=== PATIENT | female | born 1975 | race Caucasian/White ===

== ENCOUNTER 2024-10-26 16:11 | Outpatient (AMB) | payer OTHER, SELFPAY ==
--- OUTSIDE RECORDS SUMMARY | 2024-10-26 18:02 | XMS_ITS | Encounter Summary ---
Author Organization [facility] [place] [address] Care Team Providers Care Petroleum Sampler Name Role Phone Connie Coley Primary Care Provider [phone] Encounter Details Date Type Department Care Team (Latest Contact Info) Description 09/01/2024 Lab Requisition [facility] - Main Lab [address] [place] [address] Soni Glass MD [address] [address] Encounter for gynecological examination (general) (routine) without abnormal findings Social History Tobacco Use Types Packs/Day Years Used Date Smoking Tobacco: Never Smokeless Tobacco: Never Alcohol Use Standard Drinks/Week Comments Yes 0 (1 standard drink = 0.6 oz pur e alcohol) social Interpersonal Safety Answer Date Record ed Physical Abuse 06/19/2024 Verbal Abuse 06/19/2024 Comments No Sex and Gender Information Value Date Recorded Sex Assigned at Female 04/10/2024 12:50 PM EST Legal Sex Female 6:27 PM EST Gender Identity Female 04/10/2024 12:50 PM EST Sexual Orientation Not on file documented as of this encounter Plan of Treatment Not on file documented as of this encounter Procedures Procedure Name Priority Date/Time Associated Diagnosis Comments PAP SMEAR Routine 08/31/2024 12:00 PM EDT Encounter for gynecological examination (general) (routine) without abnormal findings documented in this encounter Results * Pap smear (08/31/2024 12:00 PM EDT) Interpretation Negative for intraepithelial lesion or malignancy 09/09/2024 1:48 PM EDT [facility] General Categorization Negative 09/09/2024 1:48 PM EDT [facility] Specimen Adequacy Satisfactory for evaluation, endocervical/manrique sformation zone component absent 09/09/2024 1:48 PM EDT [facility] Pap Methodology Liquid Based Pap Test 09/09/2024 1:48 PM EDT [facility] Disclaimer The Pap test is a screening test which carries an inherent false negative rate. These test results should be correlated with the patient's clinical findings and history. This Pap test was processed using an automated screening system. Technical cytopathology services provided by [facility], at [address] [place] [address] (CLIA # [id number]/Doug Antonio MD, Breeder Hen Service Technician.) 09/09/2024 1:48 PM EDT [facility] Console Pap Interpretation Reported 09/09/2024 1:48 PM EDT [facility] Brushing/Spatula Cervix uteri structure / Unknown 08/31/2024 12:00 PM EDT 09/01/2024 6:29 AM EDT us Soni Glass MD LAB CYTOLOGY ORDERABLES Final Result [facility] [address] [place] [address], [place] [phone] documented in this encounter Visit Diagnoses Diagnosis Encounter for gynecological examination (general) (routine) without abnormal findings documented in this encounter Care Teams Petroleum Sampler Relationship Specialty Start Date End Date Connie Coley [address] [place] [address] PCP - General Family Medicine 02/14/24 documented as of this encounter
--- OUTSIDE RECORDS SUMMARY | 2024-10-26 18:02 | XMS_ITS | Clinical Summary ---
Author Organization [address] [facility] Address [address] [place] [address] Phone Care Team Providers Care Genetic Counsellor Name Role Phone Connie Coley Primary Care Provider [phone] Allergies Active Allergy Reactions Criticality Noted Date Comments Naproxen 2015 Medications lisinopriL (PRINIVIL,ZESTR IL) 10 mg tablet Take 1 tablet (10 mg total) by mouth 1 (one) time each day. 4 Active amLODIPine (NORVASC) 5 mg tablet Take 1 tablet (5 mg total) by mouth at bedtime. 4 Active MULTIVITAMIN ORAL Take 1 tablet by mouth 1 (one) time each day. Active fexofenadine (GURU) 180 mg tablet Take 1 tablet (180 mg total) by mouth 1 (one) time each day. Active methocarbamoL (ROBAXIN) 500 mg tablet Take 1 tablet (500 mg total) by mouth 2 (two) times a day for 10 days. 20 tablet 5 Active polyethylene glycol (Golytely) 236-22.74-6.74 -5.86 gram solution Take 4L by mouth once for one dose. May substitue any PEG. Starting at 6PM the night before your procedure drink 1 8oz glasses at your own pace until you complete half of the gallon. Finish 2nd half of the gallon 5 hours before your procedure. 4000 mL 5 Active bisacodyL (DULCOLAX) 5 mg EC tablet Take 2 tablets by mouth right before beginning bowel prep. See instructions provided by the office 2 tablet 5 Active levonorgestreL (MIRENA) 21 mcg/24hr (up to 8 yrs) 52 mg IUD 1 Device (1 each total) by intrauterine route. 5 Active Active Problems Problem Noted Date Diagnosed Date HTN (hypertension) 06/19/2024 Encounters Date Type Department Care Team Description 09/01/2024 Lab Requisition [facility] - Main Lab [address] [facility] [place] [address] Soni Glass MD Encounter for gynecological examination (general) (routine) without abnormal findings from Last 3 Months Surgical History Surgery Date Site/Laterality Comments TYMPANOSTOMY TUBE PLACEMENT PROCEDURE: HISTORICAL PE TUBES SINUS SURGERY 07/2013 Dr Lewis PROCEDURE: MI UNLISTED PROCEDURE ACCESSORY SINUSES; COMMENT: deviated nasal septum; polyps COLONOSCOPY 03/09/2016 PROCEDURE: HISTORICAL COLONOSCOPY; COMMENT: Normal screening examination. OTHER SURGICAL HISTORY 04/19/16 both 2oclock Bilateral PROCEDURE: BREAST MASS CORE BIOPSY SPCMN PATHOLGY EXAM; COMMENT: benign, no cancer BREAST BIOPSY 04/19/2015 Bilateral benign Medical History Medical History Date Comments Historical Medical DX 10/21/2014 DX:NO ACTI VE MEDICAL PROBLEMS Multiple nasal polyps 11/12/2018 DX:Multipl e nasal polyps Essential hypertension 05/03/2021 DX:Essent ial hypertension Colon polyps 05/24/2021 DX:Colon polyps; COMMENT: Colonoscopy on May 18, 2021 showed 5 5 to 8 mm polyps in the ascending colon and one 5 mm polyp in the descending colon. Dr. Carreon recommends repeat colonoscopy in 3 years. Family History Medical History Relation Name Comments Hypertension Brother 1 No Known Problems Brother 2 No Known Problems Father never met biological father Heart attack Maternal Grandfather Other cancer Maternal Grandfather metasta sized; caught late, unknown primary Stroke Maternal Grandfather Breast cancer Maternal Grandmother m 40s a ge 82, date of onset unknown Colon cancer Mother No Known Problems Paternal Grandfather ne ninfa met No Known Problems Paternal Grandmother ne ninfa met Relation Name Status Comments Brother 1 Alive Brother 2 Alive Father Maternal Grandfather Maternal Grandmother m 40s Mother Alive Paternal Grandfather Paternal Grandmother Social History Tobacco Use Types Packs/Day Years [...] PM EST Sexual Orientation Not on file Obstetrics History Para Term AB IAB SAB Ectopic Multiple Livin g Live Births 1 03 04 1 Date Outcome GA Total Labor Labor/2nd/3rd Weight Sex Type Anes PTL Melissa A1 A5 Name Clin Term Last Filed Vital Signs Vital Sign Reading Time Taken Comments Blood Pressure 128/81 06/19/2024 9:33 AM EDT Pulse 69 06/19/2024 9:33 AM EDT Temperature 36.4 C (97.6 F) 06/19/2024 8:26 AM EDT Respiratory Rate 16 06/19/2024 9:33 AM EDT Oxygen Saturation 96% 06/19/2024 9:33 AM EDT Inhaled Oxygen Concentration - - Weight 95.3 kg (210 lb) 06/19/2024 8:26 AM EDT Height 170.2 cm (5' 7 ) 06/19/2024 8:26 AM EDT Body Mass Index 32.89 06/19/2024 8:26 AM EDT Plan of Treatment Health Maintenance Due Date Last Done Comments Hepatitis B Vaccines (1 of 3 - 19+ 3-dose series) 1995 Cholesterol Screening (Lipid Panel) 02/10/2022 HIV Screening 02/10/2022 Hepatitis C Screening 02/10/2022 Social Influencers of Health Screening 02/10/2022 Hypertension/CHF/CAD Annual BMP Blood Test 02/11/2022 COVID-19 Vaccine ( season) 2023 12/29/2020, 11/30/2020 Depression Screening 03/04/2024 Influenza Vaccine (#1) 2024 , 11/12/2018, 01/31/2017, Additional history exists Breast Cancer Screening 04/10/2026 04/10/19, 04/05/2023, 04/03/2022, Additional history exists DTaP,Tdap,and Td Vaccines (3 - Td or Tdap) 07/21/2026 07/21/2016, 10/21/2014 Colorectal Cancer Screening: Colonoscopy 06/20/2027 06/19/2024 Cervical Cancer Screening: Pap Smear 09/01/2027 08/31/2024 HIB Vaccines Aged Out No longer eligi ble based on patient's age to complete this topic HPV Vaccines Aged Out No longer eligi ble based on patient's age to complete this topic Hepatitis A Vaccines Aged Out No long er eligible based on patient's age to complete this topic IPV Vaccines Aged Out No longer eligi ble based on patient's age to complete this topic MMR Vaccines Aged Out No longer eligi ble based on patient's age to complete this topic Meningococcal ACWY Vaccine Aged Out N o longer eligible based on patient's age to complete this topic Meningococcal B Vaccine Aged Out No l onger eligible based on patient's age to complete this topic Pneumococcal Vaccine: Pediatrics (0 to 5 Years) and At-Risk Patients (6 to 49 Years) Aged Out No longer eligible based on patient's age to complete this topic RSV Immunization Patients Under 20 months Aged Out No longer eligible based on patient's age to complete this topic Varicella Vaccines Aged Out No longer eligible based on patient's age to complete this topic Procedures Procedure Name Priority Date/Time Associated Diagnosis Comments PAP SMEAR Routine 08/31/2024 12:00 PM EDT Encounter for gynecological examination (general) (routine) without abnormal findings COLONOSCOPY Routine 06/19/2024 9:11 AM EDT Hx of colonic polyps MG MAMMO DIGITAL SCREENING W MARTIN BILAT Routine 04/10/2024 1:04 PM EST Encounter for screening mammogram for breast cancer from Last 3 Months or Most Recently Relevant to Health Maintenance Results * Pap smear (08/31/2024 12:00 PM EDT) Interpretation Negative for intraepithelial lesion or malignancy 09/09/2024 1:48 PM EDT [facility] General Categorization Negative 09/09/2024 1:48 PM EDT [facility] Specimen Adequacy Satisfactory for evaluation, endocervical/manrique sformation zone component absent 09/09/2024 1:48 PM EDT [facility] Pap Methodology Liquid Based Pap Test 09/09/2024 1:48 PM EDT [facility] Disclaimer The Pap test is a screening test which carries an inherent false negative rate. These test results should be correlated with the patient's clinical findings and history. This Pap test was processed using an automated screening system. Technical cytopathology services provided by [facility], at [address] [place] [id number] (CLIA # [id number]/Doug Antonio MD, Bicycle Designer.) 09/09/2024 1:48 PM EDT [facility] Console Pap Interpretation Reported 09/09/2024 1:48 PM EDT [facility] Brushing/Spatula Cervix uteri structure / Unknown 08/31/2024 12:00 PM EDT 09/01/2024 6:29 AM EDT Soni Glass MD LAB CYTOLOGY ORDERABLES Final Result [facility] [address] [place] [address], * COLONOSCOPY Anesthesia - MAC; [facility] ENDOSCOPY (06/19/2024 9:11 AM EDT) Anatomical Region Laterality Modality Endoscopy 06/19/2024 8:55 AM EDT Impressions 06/19/2024 9:15 AM EDT - Internal hemorrhoids. - The examination was otherwise normal. - No specimens collected. Recommendation: - Discharge patient to home. - Repeat colonoscopy in 5 years for surveillance. Narrative 06/19/2024 9:15 AM EDT [facility] GI Patient Name: Martin Flanagan Procedure Date: 06/19/2024 8:55 AM Date of : 1975 Age: 49 Gender: Female Note Status: Finalized Attending MD: Denise Carreon MD, Procedure Date No Time: 06/19/2024 Procedure: Colonoscopy Indications: High risk colon cancer surveillance: Personal history of colonic polyps Providers: Denise Carreon MD Referring MD: Denise Carreon MD Medicines: Monitored Anesthesia Care Complications: No immediate complications. Estimated Blood Loss: Estimated blood loss: none. Procedure: Pre-Anesthesia Assessment: - Prior to the procedure, a History and Physical was performed, and patient medications and allergies were reviewed. The patient is competent. The risks and benefits of the procedure and the sedation options and risks were discussed with the patient. All questions were answered and informed consent was obtained. Patient identification and proposed procedure were verified by the physician, the nurse, the financial specialist and the correctional maintenance technician in the pre-procedure area in the endoscopy suite. Mental Status Examination: alert and oriented. Airway Examination: normal oropharyngeal airway and neck mobility. Respiratory Examination: clear to auscultation. CV Examination: normal. Prophylactic Antibiotics: The patient does not require prophylactic antibiotics. Prior Anticoagulants: The patient has taken no anticoagulant or antiplatelet agents. ASA Grade Assessment: II - A patient with mild systemic disease. After reviewing the risks and benefits, the patient was deemed in satisfactory condition to undergo the procedure. The anesthesia plan was to use monitored anesthesia care (MAC). Immediately prior to administration of medications, the patient was re-assessed for adequacy to receive sedatives. The heart rate, respiratory rate, oxygen saturations, blood pressure, adequacy of pulmonary ventilation, and response to care were monitored throughout the procedure. The physical status of the patient was re-assessed after the procedure. After I obtained informed consent, the scope was passed under direct vision. Throughout the procedure, the patient's blood pressure, pulse, and oxygen saturations were monitored continuously. The Olympus Colonoscope was introduced through the anus and advanced to the cecum, identified by appendiceal orifice and ileocecal valve. The colonoscopy was performed without difficulty. The patient tolerated the procedure well. The quality of the bowel preparation was good. Findings: The perianal and digital rectal examinations were normal. Internal hemorrhoids were found during retroflexion. The hemorrhoids were Grade I (internal hemorrhoids that do not prolapse). The exam was otherwise without abnormality. Procedure Code(s): --- Professional --- 09839, Colonoscopy, flexible; diagnostic, including collection of specimen(s) by brushing or washing, when performed (separate procedure) Diagnosis Code(s): --- Professional --- Z86.010, Personal history of colonic polyps CPT copyright 2020 [employer]. All rights reserved. The codes documented in this report are preliminary and upon mechanical fitter review may be revised to meet current compliance requirements. Denise Carreon MD 06/19/2024 9:15:35 AM This report has been signed electronically.Denise Carreon MD Number of Addenda: 0 Note Initiated On: 06/19/2024 8:55 AM Scope Withdrawal Time: 0 hours 6 minutes 40 seconds Scope In: 9:00:36 AM Scope Out: 9:09:33 AM Endoscopy Department at [facility] - [address] [place] [id number] Procedure Note Denise Carreon MD - 06/19/2024 [facility] GI Patient Name: Martin Flanagan Procedure Date: 06/19/2024 8:55 AM Date of : 1975 Age: 49 Gender: Female Note Status: Finalized Attending MD: Denise Carreon MD, Procedure Date No Time: 06/19/2024 Procedure: Colonoscopy Indications: High risk colon cancer surveillance: Personalhistory of colonic polyps Providers: Denise Carreon MD Referring MD: Denise Carreon MD Medicines: Monitored Anesthesia Care Complications: No immediate complications. Estimated Blood Loss: Estimated blood loss: none. Procedure: Pre-Anesthesia Assessment: - Prior to the procedure, a History and Physicalwas performed, and patient medications and allergieswere reviewed. The patient is competent. The risks and benefits of the procedure and the sedation optionsand risks were discussed with the patient. Allquestions were answered and informed consent was obtained. Patient identification and proposed procedure were verified by the physician, the nurse, theanesthetist and the correctional maintenance technician in the pre-procedure area in the endoscopy suite. Mental Status Examination: alertand oriented. Airway Examination: normal oropharyngeal airway and neck mobility. Respiratory Examination: clear to auscultation. CV Examination: normal. Prophylactic Antibiotics: The patient does notrequire prophylactic antibiotics. Prior Anticoagulants: The patient has taken no anticoagulant or antiplatelet agents. ASA Grade Assessment: II - A patient withmild systemic disease. After reviewing the risks and benefits, the patient was deemed in satisfactory condition to undergo the procedure. The anesthesia plan was to use monitored anesthesia care (MAC). Immediately prior to administration of medications, the patient was re-assessed for adequacy to receive sedatives. The heart rate, respiratory rate, oxygen saturations, blood pressure, adequacy of pulmonary ventilation, and response to care were monitored throughout the procedure. The physical status ofthe patient was re-assessed after the procedure. After I obtained informed consent, the scope was passed under direct vision. Throughout theprocedure, the patient's blood pressure, pulse, and oxygen saturations were monitored continuously. TheOlympus Colonoscope was introduced through the anus and advanced to the cecum, identified by appendiceal orifice and ileocecal valve. The colonoscopy was performed without difficulty. The patient tolerated the procedure well. The quality of the bowel preparation was good. Findings: The perianal and digital rectal examinations were normal. Internal hemorrhoids were found duringretroflexion. The hemorrhoids were Grade I (internal hemorrhoids that do not prolapse). The exam was otherwise without abnormality. Procedure Code(s): --- Professional --- 11276, Colonoscopy, flexible; diagnostic, including collection of specimen(s) by brushing or washing,when performed (separate procedure) Diagnosis Code(s): --- Professional --- Z86.010, Personal history of colonic polyps CPT copyright 2020 [employer]. All rights reserved. The codes documented in this report are preliminary and upon mechanical fitter reviewmay be revised to meet current compliance requirements. Denise Carreon MD 06/19/2024 9:15:35 AM This report has been signed electronically.Denise Carreon MD Number of Addenda: 0 Note Initiated On: 06/19/2024 8:55 AM Scope Withdrawal Time: 0 hours 6 minutes 40 seconds Scope In: 9:00:36 AM Scope Out: 9:09:33 AM Endoscopy Department at [facility] - [address] [place] [id number] IMPRESSION: - Internal hemorrhoids. - The examination was otherwise normal. - No specimens collected. Recommendation: - Discharge patient to home. - Repeat colonoscopy in 5 years for surveillance. Denise Carreon MD GI~PROCEDURE ORDERABLES Fin al Result * MG Mammo Digital Screening w Martin bilat (04/10/2024 1:04 PM EST) Anatomical Region Laterality Modality Breast Bilateral Mammography 04/13/2024 9:58 AM EST Impressions 04/13/2024 11:52 AM EST 1. No mammographic evidence of malignancy 2. Scattered fibroglandular tissue BI-RADS CATEGORY: 2 - BENIGN RECOMMENDATION: Screening bilateral mammogram is recommended in 1 year. Mammo Location: [facility], [address] [place] [address], [id number], . -------- FINAL REPORT -------- Dictated By: Dhruv Moreno Dictated Date: 04/13/2024 09:58 ET Assigned Physician: Dhruv Moreno Reviewed and Electronically Signed By: Dhruv Moreno Signed Date: 04/13/2024 11:52 ET Workstation ID: [id number] Transcribed By: Self Edit Transcribed Date: 04/13/2024 10:15 ET Narrative 04/13/2024 11:52 AM EST A BILATERAL DIGITAL 3D SCREENING MAMMOGRAPHY HISTORY: Routine screening. Family history of breast cancer in grandmother. COMPARISON: Multiple priors dating back to 03/29/2021 Technique: Bilateral full field digital mammography (3D) was performed using standard CC and MLO projections , left breast exaggerated CC CAD was used to evaluate this mammogram. FINDINGS: Right: No suspicious masses, groups of microcalcification or areas of architectural distortion identified. Stable typically benign parenchymal asymmetries. Upper outer biopsy marker at middle depth. Left: No suspicious masses, groups of microcalcification or areas of architectural distortion identified. Stable typically benign parenchymal asymmetries. Medial breast biopsy marker at posterior depth. BREAST DENSITY: B - There are scattered areas of fibroglandular density. Procedure Note Dhruv Moreno MD - 04/13/2024 A BILATERAL DIGITAL 3D SCREENING MAMMOGRAPHY HISTORY: Routine screening. Family history of breast cancer ingrandmother. COMPARISON: Multiple priors dating back to 03/29/2021 Technique: Bilateral full field digital mammography (3D) was performedusing standard CC and MLO projections , left breast exaggerated CC CAD was used to evaluate this mammogram. FINDINGS: Right: No suspicious masses, groups of microcalcification or areas ofarchitectural distortion identified. Stable typically benign parenchymalasymmetries. Upper outer biopsy marker at middle depth. Left: No suspicious masses, groups of microcalcification or areas ofarchitectural distortion identified. Stable typically benign parenchymalasymmetries. Medial breast biopsy marker at posterior depth. BREAST DENSITY: B - There are scattered areas of fibroglandular density. IMPRESSION: 1. No mammographic evidence of malignancy 2. Scattered fibroglandular tissue BI-RADS CATEGORY: 2 - BENIGN RECOMMENDATION: Screening bilateral mammogram is recommended in 1 year. Mammo Location: [facility], [address] [place] [address], [id number], . -------- FINAL REPORT -------- Dictated By: Dhruv Moreno Dictated Date: 04/13/2024 09:58 ET Assigned Physician: Dhruv Moreno Reviewed and Electronically Signed By: Dhruv Moreno Signed Date: 04/13/2024 11:52 ET Workstation ID: [id number] Transcribed By: Self Edit Transcribed Date: 04/13/2024 10:15 ET Connie Coley IMG BI PROCEDURES Final Result from Last 3 Months or Most Recently Relevant to Health Maintenance Insurance [facility] Care Teams Genetic Counsellor Relationship Specialty Start Date End Date Connie Coley [address] [place] [address] PCP - General Family Medicine 02/14/24
--- OUTSIDE RECORDS SUMMARY | 2024-10-26 18:02 | XMS_ITS ---
Author Name [facility] Organization Unknown History of Medication Use Medication Directions Dispensed Refills Start Date End Date Stat us ketorolac (TORADOL) injection 15 mg 15 mg, intramuscular, Once, On Sat04/13/24 at 0532, For 1 dose 04/13/2024 5 completed morphine injection 4 mg 4 mg, intramuscular, Once, On Sat04/13/24 at 0425, For 1 dose 04/13/2024 5 completed ondansetron ODT (ZOFRAN-ODT) disintegrating tablet 4 mg 4 mg, oral, Once, On Sat04/13/24 at 0425, For 1 dose 04/13/2024 5 completed methocarbamoL (ROBAXIN) tablet 500 mg 500 mg, oral, Once, On Sat04/13/24 at 0425, For 1 dose 04/13/2024 active methylPREDNISolone (MEDROL DOSPAK) 4 mg tablet Take 1 tablet by mouth as directed on the package. 04/13/2024 active oxyCODONE-acetaminophen (PERCOCET) 5-325 mg per tablet Take 1 tablet by mouth every 6 (six) hours if needed for severe pain for up to 3 days. Max Daily Amount: 4 tablets 04/13/2024 active lisinopriL (PRINIVIL,ZESTRIL) 10 mg tablet Take 1 tablet (10 mg total) by mouth 1 (one) time each day. 09/18/2023 active amLODIPine (NORVASC) 5 mg tablet Take 1 tablet (5 mg total) by mouth at bedtime. 03/27/2023 active fexofenadine (GURU) 180 mg tablet Take 1 tablet (180 mg total) by mouth 1 (one) time each day. active MULTIVITAMIN ORAL Take 1 tablet by mouth 1 (one) time each day. active Allergies Allergen Reaction Severity Comment Documented Date Source Statu s NAPROXEN 2015 [facility] active Problems Problem Status Onset Date Problem Type Date of Resolution Source Radiculopathy, unspecified spinal region active EncounterDiagnosisAct CT_THJ Encounters Encounter Type Encounter Reason Primary Diagnosis Location Date Emergency NECK AND SHOULDER PAIN Radiculopathy, site unspecified [facility] 04/13/2024 Care Team Organization Name Specialty Phone Email Start Date End [facility] Primary Care 04/22/2024 [facility] Primary Care 04/13/2024
== END 2024-10-27 14:12 | disposition home or self-care (01) ==
LOC: HO.HMGAL 16:11
PROVIDERS: PCP Internal Medicine; Visit Provider Registered Nurse Emergency
DX: J30.89 Other allergic rhinitis (principal)
CPT/HCPCS: 95117; 95165

== ENCOUNTER 2024-11-16 11:44 | Outpatient (AMB) | payer OTHER, SELFPAY ==
--- OUTSIDE RECORDS SUMMARY | 2024-11-16 16:17 | XMS_ITS | Clinical Summary ---
Author Organization [facility] Address [address] [place] [address] Phone Care Team Providers Care Computer Typesetter Name Role Phone Connie Coley Primary Care Provider Allergies Active Allergy Reactions Criticality Noted Date [...] Department Care Team Description 09/01/2024 Lab Requisition [facility] - Main Lab [address] [facility] [employer] [address] Soni Glass MD Encounter for gynecological examination (general) (routine) without abnormal findings from Last 3 Months Surgical History Surgery Date Site/Laterality Comments TYMPANOSTOMY TUBE PLACEMENT PROCEDURE: HISTORICAL PE TUBES SINUS SURGERY 07/2013 Dr Lewis PROCEDURE: [place] UNLISTED PROCEDURE ACCESSORY SINUSES; COMMENT: deviated nasal [...] 02/10/2022 Hypertension/CHF/CAD Annual BMP Blood Test 02/11/2022 Depression Screening 03/04/2024 COVID-19 Vaccine ( season) 2024 12/29/2020, 11/30/2020 Influenza Vaccine (#1) 2024 , 11/12/2018, 01/31/2017, [...] lesion or malignancy 09/09/2024 1:48 PM EDT [facility] General Categorization Negative 09/09/2024 1:48 PM EDT [facility] Specimen Adequacy Satisfactory for evaluation, endocervical/manrique sformation zone component absent 09/09/2024 1:48 PM EDT [facility] Pap Methodology Liquid Based Pap Test 09/09/2024 1:48 PM EDT [facility] Disclaimer The Pap test is a screening test which carries an inherent false negative rate. These test results should be correlated with the patient's clinical findings and history. This Pap test was processed using an automated screening system. Technical cytopathology services provided by [facility], at [address] [place] [id number] (CLIA # [id number]/Doug Antonio MD, Electric Locomotive Firer/Fireman.) 09/09/2024 1:48 PM EDT [facility] Console Pap Interpretation Reported 09/09/2024 1:48 PM EDT [facility] Brushing/Spatula Cervix uteri structure / Unknown 08/31/2024 12:00 PM EDT 09/01/2024 6:29 AM EDT Soni Glass MD LAB CYTOLOGY ORDERABLES Final Result [facility] [address] [place] [address], * COLONOSCOPY Anesthesia - MAC; [facility] (06/19/2024 9:11 AM EDT) Anatomical Region Laterality Modality Endoscopy 06/19/2024 8:55 AM EDT Impressions 06/19/2024 9:15 AM EDT - Internal hemorrhoids. - The examination was otherwise normal. - No specimens collected. Recommendation: - Discharge patient to home. - Repeat colonoscopy in 5 years for surveillance. Narrative 06/19/2024 9:15 AM EDT [facility] GI Patient Name: Martin Flanagan Procedure Date: [...] verified by the physician, the nurse, the meat carver and the vacuum technician in the pre-procedure area in the [...] without abnormality. Procedure Code(s): --- Professional --- 12072, Colonoscopy, flexible; diagnostic, including collection of specimen(s) by brushing or washing, when performed (separate procedure) Diagnosis Code(s): --- Professional --- Z86.010, Personal history of colonic polyps CPT copyright 2020 [employer]. All rights reserved. The codes documented in this report are preliminary and upon center specialists review may be revised to meet current compliance requirements. Denise Carreon MD 06/19/2024 9:15:35 AM This report has been signed electronically.Denise Carreon MD Number of Addenda: 0 Note Initiated On: 06/19/2024 8:55 AM Scope Withdrawal Time: 0 hours 6 minutes 40 seconds Scope In: 9:00:36 AM Scope Out: 9:09:33 AM Endoscopy Department at [facility] - [address] [place] [phone] Procedure Note Denise Carreon MD - 06/19/2024 [facility] GI Patient Name: Martin Flanagan Procedure Date: [...] the physician, the nurse, theanesthetist and the vacuum technician in the pre-procedure area in the [...] without abnormality. Procedure Code(s): --- Professional --- 48394, Colonoscopy, flexible; diagnostic, including collection of specimen(s) by brushing or washing,when performed (separate procedure) Diagnosis Code(s): --- Professional --- Z86.010, Personal history of colonic polyps CPT copyright 2020 [employer]. All rights reserved. The codes documented in this report are preliminary and upon center specialists reviewmay be revised to meet current compliance requirements. Denise Carreon MD 06/19/2024 9:15:35 AM This report has been signed electronically.Denise Carreon MD Number of Addenda: 0 Note Initiated On: 06/19/2024 8:55 AM Scope Withdrawal Time: 0 hours 6 minutes 40 seconds Scope In: 9:00:36 AM Scope Out: 9:09:33 AM Endoscopy Department at [facility] - [address] [place] [phone] IMPRESSION: - Internal hemorrhoids. - The examination [...] is recommended in 1 year. Mammo Location: [facility], [address] [place] [address], [address], . -------- FINAL REPORT -------- Dictated By: Dhruv Moreno Dictated Date: 04/13/2024 09:58 ET Assigned Physician: Dhruv Moreno Reviewed and Electronically Signed By: Dhruv Moreno Signed Date: 04/13/2024 11:52 ET Workstation ID: [id number] Transcribed By: Self Edit Transcribed Date: 04/13/2024 [...] is recommended in 1 year. Mammo Location: [facility], [address] [place] [address], [address], . -------- FINAL REPORT -------- Dictated By: Dhruv Moreno Dictated Date: 04/13/2024 09:58 ET Assigned Physician: Dhruv Moreno Reviewed and Electronically Signed By: Dhruv Moreno Signed Date: 04/13/2024 11:52 ET Workstation ID: [id number] Transcribed By: Self Edit Transcribed Date: 04/13/2024 10:15 ET Connie Coley IMG BI PROCEDURES Final Result from Last 3 Months or Most Recently Relevant to Health Maintenance Insurance [employer] Care Teams Computer Typesetter Relationship Specialty Start Date End Date Connie Coley [address] [place] [address] PCP - General Family Medicine 02/14/24
--- OUTSIDE RECORDS SUMMARY | 2024-11-16 16:17 | XMS_ITS | Encounter Summary ---
Author Organization [facility] [place] [address] Care Team Providers Care Earth Observations Chief Scientist Name Role Phone Connie Coley Primary Care Provider [phone] Encounter Details Date Type Department Care Team (Latest Contact Info) Description 09/01/2024 Lab Requisition [facility] - Main Lab [address] [place] [address] Soni Glass MD [address] [address] Encounter for gynecological examination (general) [...] lesion or malignancy 09/09/2024 1:48 PM EDT [facility] General Categorization Negative 09/09/2024 1:48 PM EDT [facility] Specimen Adequacy Satisfactory for evaluation, endocervical/manrique sformation zone component absent 09/09/2024 1:48 PM EDT [facility] Pap Methodology Liquid Based Pap Test 09/09/2024 1:48 PM EDT [facility] Disclaimer The Pap test is a screening test which carries an inherent false negative rate. These test results should be correlated with the patient's clinical findings and history. This Pap test was processed using an automated screening system. Technical cytopathology services provided by [facility], at [address] [place] [address] (CLIA # [id number]/Doug Antonio MD, Timber Hand.) 09/09/2024 1:48 PM EDT [facility] Console Pap Interpretation Reported 09/09/2024 1:48 PM EDT [facility] Brushing/Spatula Cervix uteri structure / Unknown 08/31/2024 12:00 PM EDT 09/01/2024 6:29 AM EDT us Soni Glass MD LAB CYTOLOGY ORDERABLES Final Result [facility] [address] [place] [address], [place] [phone] documented in this encounter Visit Diagnoses Diagnosis Encounter for gynecological examination (general) (routine) without abnormal findings documented in this encounter Care Teams Earth Observations Chief Scientist Relationship Specialty Start Date End Date Connie Coley [address] [place] [address] PCP - General Family Medicine 02/14/24 documented as of this encounter
== END 2024-11-16 11:47 | disposition home or self-care (01) ==
LOC: HO.HMGAL 11:44
PROVIDERS: PCP Internal Medicine; Visit Provider Registered Nurse Emergency
DX: J30.89 Other allergic rhinitis (principal)
CPT/HCPCS: 95117; 95165

== ENCOUNTER 2024-12-07 14:16 | Outpatient (AMB) | payer OTHER, SELFPAY ==
--- OUTSIDE RECORDS SUMMARY | 2024-12-07 16:47 | XMS_ITS | Clinical Summary ---
Author Organization [facility] Address [address] [place] [address] Phone Care Team Providers Care Lumber Buyer Name Role Phone Connie Coley Primary Care Provider [phone] Allergies Active Allergy Reactions Criticality Noted Date [...] Noted Date Diagnosed Date HTN (hypertension) 06/19/2024 Surgical History Surgery Date Site/Laterality Comments TYMPANOSTOMY TUBE PLACEMENT PROCEDURE: HISTORICAL PE TUBES SINUS SURGERY 07/2013 Dr Lewis PROCEDURE: [place] UNLISTED PROCEDURE ACCESSORY SINUSES; COMMENT: deviated nasal [...] Safety Answer Date Record ed Physical Abuse Unrecognized value 06/19/2024 Verbal Abuse Unrecognized value 06/19/2024 Comments No Sex and Gender Information Value Date Recorded Sex Assigned at Female 04/10/2024 12:50 PM EST Legal Sex Female 6:27 PM EST Gender Identity Female 04/10/2024 12:50 PM EST Sexual Orientation Not on file Obstetrics History Para Term AB IAB SAB Ectopic Multiple Livin g Live Births 1 1 1 1 Date Outcome GA Total Labor Labor/2nd/3rd [...] 2024 12/29/2020, 11/30/2020 Influenza Vaccine (#1) 2024 2, 11/12/2018, 01/31/2017, Additional history exists Breast Cancer Screening 04/10/2026 04/10/19 25, 04/05/2023, 04/03/2022, Additional history exists DTaP,Tdap,and Td Vaccines (3 - Td or Tdap) 07/21/2026 07/21/2016, 10/21/2014 Colorectal Cancer Screening: Colonoscopy 06/20/2027 06/19/2024 Cervical Cancer Screening: Pap Smear 09/01/2027 08/31/2024 RSV Immunization Adult Patients (1 - 1-dose 75+ series) 2051 HIB Vaccines Aged Out No longer eligi [...] lesion or malignancy 09/09/2024 1:48 PM EDT [facility] General Categorization Negative 09/09/2024 1:48 PM EDT [facility] Specimen Adequacy Satisfactory for evaluation, endocervical/manrique sformation zone component absent 09/09/2024 1:48 PM EDT [facility] Pap Methodology Liquid Based Pap Test 09/09/2024 1:48 PM EDT [facility] Disclaimer The Pap test is a screening test which carries an inherent false negative rate. These test results should be correlated with the patient's clinical findings and history. This Pap test was processed using an automated screening system. Technical cytopathology services provided by [facility], at [address] [place] [address] (CLIA # [id number]/Doug Antonio MD, Undercutter.) 09/09/2024 1:48 PM EDT [facility] Console Pap Interpretation Reported 09/09/2024 1:48 PM EDT [facility] Brushing/Spatula Cervix uteri structure / Unknown 08/31/2024 12:00 PM EDT 09/01/2024 6:29 AM EDT us Soni Glass MD LAB CYTOLOGY ORDERABLES Final Result [facility] [address] [place] [address], * COLONOSCOPY Anesthesia - MAC; [facility] ENDOSCOPY (06/19/2024 9:11 AM EDT) Anatomical Region Laterality Modality Endoscopy 06/19/2024 8:55 AM EDT Impressions 06/19/2024 9:15 AM EDT - Internal hemorrhoids. - The examination was otherwise normal. - No specimens collected. Recommendation: - Discharge patient to home. - Repeat colonoscopy in 5 years for surveillance. Narrative 06/19/2024 9:15 AM EDT [facility] Patient Name: Martin Flanagan Procedure Date: 06/19/2024 8:55 AM Date of : 1975 Age: 49 Gender: Female Note Status: Finalized Attending MD: Deinse Carreon MD, Procedure Date No Time: 06/19/2024 [...] verified by the physician, the nurse, the radiology practitioner assistant and the stress test technician in the pre-procedure area in the [...] without abnormality. Procedure Code(s): --- Professional --- 12989, Colonoscopy, flexible; diagnostic, including collection of specimen(s) by brushing or washing, when performed (separate procedure) Diagnosis Code(s): --- Professional --- Z86.010, Personal history of colonic polyps CPT copyright 2020 [employer]. All rights reserved. The codes documented in this report are preliminary and upon culturist review may be revised to meet current compliance requirements. Denise Carreon MD 06/19/2024 9:15:35 AM This report has been signed electronically.Denise Carreon MD Number of Addenda: 0 Note Initiated On: 06/19/2024 8:55 AM Scope Withdrawal Time: 0 hours 6 minutes 40 seconds Scope In: 9:00:36 AM Scope Out: 9:09:33 AM Endoscopy Department at [facility] - [address] [place] [phone] Procedure Note Denise Carreon MD - 06/19/2024 [facility] GI Patient Name: Martin Flanagan [...] the physician, the nurse, theanesthetist and the stress test technician in the pre-procedure area in the [...] without abnormality. Procedure Code(s): --- Professional --- 12934, Colonoscopy, flexible; diagnostic, including collection of specimen(s) by brushing or washing,when performed (separate procedure) Diagnosis Code(s): --- Professional --- Z86.010, Personal history of colonic polyps CPT copyright 2020 [employer]. All rights reserved. The codes documented in this report are preliminary and upon culturist reviewmay be revised to meet current compliance requirements. Denise Carreon MD 06/19/2024 9:15:35 AM This report has been signed electronically.Denise Carreon MD Number of Addenda: 0 Note Initiated On: 06/19/2024 8:55 AM Scope Withdrawal Time: 0 hours 6 minutes 40 seconds Scope In: 9:00:36 AM Scope Out: 9:09:33 AM Endoscopy Department at [facility] - [address] [place] [phone] IMPRESSION: - Internal hemorrhoids. - The examination was otherwise normal. - No specimens collected. Recommendation: - Discharge patient to home. - Repeat colonoscopy in 5 years for surveillance. us Denise Carreon MD GI~PROCEDURE ORDERABLES Fin al Result * MG Mammo Digital Screening w Martin bilat (04/10/2024 1:04 PM EST) Anatomical Region Laterality Modality Breast Bilateral Mammography 04/13/2024 9:58 AM EST Impressions 04/13/2024 11:52 AM EST 1. No mammographic evidence of malignancy 2. Scattered fibroglandular tissue BI-RADS CATEGORY: 2 - BENIGN RECOMMENDATION: Screening bilateral mammogram is recommended in 1 year. Mammo Location: [facility], [address] [place] [address], [address], . -------- FINAL REPORT -------- Dictated By: Dhruv Moreno Dictated Date: 04/13/2024 09:58 ET Assigned Physician: Dhruv Moreno Reviewed and Electronically Signed By: Dhruv Moreno Signed Date: 04/13/2024 11:52 ET Workstation ID: [id number] Transcribed By: Self Edit Transcribed Date: 04/13/2024 [...] is recommended in 1 year. Mammo Location: [facility], [address] [place] [address], [address], . -------- FINAL REPORT -------- Dictated By: Dhruv Moreno Dictated Date: 04/13/2024 09:58 ET Assigned Physician: Dhruv Moreno Reviewed and Electronically Signed By: Dhruv Moreno Signed Date: 04/13/2024 11:52 ET Workstation ID: [id number] Transcribed By: Self Edit Transcribed Date: 04/13/2024 10:15 ET Connie Coley [facility] BI PROCEDURES Final Result from Last 3 Months or Most Recently Relevant to Health Maintenance Insurance [facility] Care Teams Lumber Buyer Relationship Specialty Start Date End Date Connie Coley [address] [place] [address] PCP - General Family Medicine 02/14/24
--- OUTSIDE RECORDS SUMMARY | 2024-12-07 16:47 | XMS_ITS | Encounter Summary ---
Author Organization [facility] Address [address] [place] [address] Care Team Providers Care Wool Buyer Name Role Phone Connie Coley Primary Care Provider [phone] Encounter Details Date Type Department Care Team (Latest Contact Info) Description 09/01/2024 Lab Requisition [facility] - Main Lab [address] [place] [address] Soni Glass MD [address] [address] Encounter for gynecological examination (general) [...] lesion or malignancy 09/09/2024 1:48 PM EDT [facility] General Categorization Negative 09/09/2024 1:48 PM EDT [facility] Specimen Adequacy Satisfactory for evaluation, endocervical/manrique sformation zone component absent 09/09/2024 1:48 PM EDT [facility] Pap Methodology Liquid Based Pap Test 09/09/2024 1:48 PM EDT [facility] Disclaimer The Pap test is a screening test which carries an inherent false negative rate. These test results should be correlated with the patient's clinical findings and history. This Pap test was processed using an automated screening system. Technical cytopathology services provided by [facility], at [address] [place] [id number] (CLIA # [id number]/Doug Antonio MD, Director Of Business Systems.) 09/09/2024 1:48 PM EDT [facility] Console Pap Interpretation Reported 09/09/2024 1:48 PM EDT [facility] Brushing/Spatula Cervix uteri structure / Unknown 08/31/2024 12:00 PM EDT 09/01/2024 6:29 AM EDT us Soni Glass MD LAB CYTOLOGY ORDERABLES Final Result [facility] [address] [place] [address], documented in this encounter Visit Diagnoses Diagnosis Encounter for gynecological examination (general) (routine) without abnormal findings documented in this encounter Care Teams Wool Buyer Relationship Specialty Start Date End Date Connie Coley [address] [place] [address] PCP - General Family Medicine 02/14/24 documented as of this encounter
== END 2024-12-07 14:16 | disposition home or self-care (01) ==
LOC: HO.HMGAL 14:16
PROVIDERS: PCP Registered Nurse; Visit Provider Registered Nurse Emergency
DX: J30.89 Other allergic rhinitis (principal)
CPT/HCPCS: 95117; 95165

== ENCOUNTER 2024-12-28 15:46 | Outpatient (AMB) | payer OTHER, SELFPAY ==
--- OUTSIDE RECORDS SUMMARY | 2024-12-28 18:46 | XMS_ITS | Encounter Summary ---
Author Organization [facility] Address [address] [place] [address] Care Team Providers Care Patternmaker Helper Name Role Phone Connie Coley Primary Care Provider [phone] Encounter Details Date Type Department Care Team (Latest Contact Info) Description 09/01/2024 Lab Requisition [facility] - Main Lab [address] [place] [address] Soni Glass MD [address] [address] Encounter for gynecological examination (general) [...] lesion or malignancy 09/09/2024 1:48 PM EDT [facility] General Categorization Negative 09/09/2024 1:48 PM EDT [facility] Specimen Adequacy Satisfactory for evaluation, endocervical/manrique sformation zone component absent 09/09/2024 1:48 PM EDT [facility] Pap Methodology Liquid Based Pap Test 09/09/2024 1:48 PM EDT [facility] Disclaimer The Pap test is a screening test which carries an inherent false negative rate. These test results should be correlated with the patient's clinical findings and history. This Pap test was processed using an automated screening system. Technical cytopathology services provided by [facility], at [address] [place] [id number] (CLIA # [id number]/Doug Antonio MD, Finisher Tailor Apprentice.) 09/09/2024 1:48 PM EDT [facility] Console Pap Interpretation Reported 09/09/2024 1:48 PM EDT [facility] Brushing/Spatula Cervix uteri structure / Unknown 08/31/2024 12:00 PM EDT 09/01/2024 6:29 AM EDT us Soni Glass MD LAB CYTOLOGY ORDERABLES Final Result [facility] [address] [place] [address], documented in this encounter Visit Diagnoses Diagnosis Encounter for gynecological examination (general) (routine) without abnormal findings documented in this encounter Care Teams Patternmaker Helper Relationship Specialty Start Date End Date Connie Coley [address] [place] [address] PCP - General Family Medicine 02/14/24 documented as of this encounter
--- OUTSIDE RECORDS SUMMARY | 2024-12-28 18:46 | XMS_ITS | Clinical Summary ---
Author Organization [facility] Address [address] [place] [address] Phone Care Team Providers Care Bottle Hop Name Role Phone Connie Coley Primary Care Provider [phone] Allergies Active Allergy Reactions Criticality Noted Date [...] lesion or malignancy 09/09/2024 1:48 PM EDT [facility] General Categorization Negative 09/09/2024 1:48 PM EDT [facility] Specimen Adequacy Satisfactory for evaluation, endocervical/manrique sformation zone component absent 09/09/2024 1:48 PM EDT [facility] Pap Methodology Liquid Based Pap Test 09/09/2024 1:48 PM EDT [facility] Disclaimer The Pap test is a screening test which carries an inherent false negative rate. These test results should be correlated with the patient's clinical findings and history. This Pap test was processed using an automated screening system. Technical cytopathology services provided by [facility], at [address] [place] [id number] (CLIA # [id number]/Doug Antonio MD, Veterinary Assistant.) 09/09/2024 1:48 PM EDT [facility] Console Pap Interpretation Reported 09/09/2024 1:48 PM EDT [facility] Brushing/Spatula Cervix uteri structure / Unknown 08/31/2024 12:00 PM EDT 09/01/2024 6:29 AM EDT us Soni Glass MD LAB CYTOLOGY ORDERABLES Final Result [facility] [address] [place] [address], * COLONOSCOPY Anesthesia - MAC; [facility] ENDOSCOPY (06/19/2024 9:11 AM EDT) Anatomical Region Laterality Modality Endoscopy 06/19/2024 8:55 AM EDT Impressions 06/19/2024 9:15 AM EDT - Internal hemorrhoids. - The examination was otherwise normal. - No specimens collected. Recommendation: - Discharge patient to home. - Repeat colonoscopy in 5 years for surveillance. Narrative 06/19/2024 9:15 AM EDT [facility] Patient Name: Martin Flanagan Procedure [...] verified by the physician, the nurse, the configuration specialist and the clinical laboratory technician in the pre-procedure area in the [...] without abnormality. Procedure Code(s): --- Professional --- 09925, Colonoscopy, flexible; diagnostic, including collection of specimen(s) by brushing or washing, when performed (separate procedure) Diagnosis Code(s): --- Professional --- Z86.010, Personal history of colonic polyps CPT copyright 2020 [employer]. All rights reserved. The codes documented in this report are preliminary and upon biochemist review may be revised to meet current compliance requirements. Denise Carreon MD 06/19/2024 9:15:35 AM This report has been signed electronically.Denise Carreon MD Number of Addenda: 0 Note Initiated On: 06/19/2024 8:55 AM Scope Withdrawal Time: 0 hours 6 minutes 40 seconds Scope In: 9:00:36 AM Scope Out: 9:09:33 AM Endoscopy Department at [facility] - [address] [place] [phone] Procedure Note Denise Carreon MD - 06/19/2024 [facility] GI Patient Name: Martin Flanagan Procedure [...] the physician, the nurse, theanesthetist and the clinical laboratory technician in the pre-procedure area in the [...] without abnormality. Procedure Code(s): --- Professional --- 37966, Colonoscopy, flexible; diagnostic, including collection of specimen(s) by brushing or washing,when performed (separate procedure) Diagnosis Code(s): --- Professional --- Z86.010, Personal history of colonic polyps CPT copyright 2020 [employer]. All rights reserved. The codes documented in this report are preliminary and upon biochemist reviewmay be revised to meet current compliance requirements. Denise Carreon MD 06/19/2024 9:15:35 AM This report has been signed electronically.Denise Carreon MD Number of Addenda: 0 Note Initiated On: 06/19/2024 8:55 AM Scope Withdrawal Time: 0 hours 6 minutes 40 seconds Scope In: 9:00:36 AM Scope Out: 9:09:33 AM Endoscopy Department at [facility] - [address] [place] [phone] IMPRESSION: - Internal hemorrhoids. - The examination [...] is recommended in 1 year. Mammo Location: [facility], [address] [place] [address], [id number], . -------- FINAL REPORT -------- Dictated By: Dhruv Moreno Dictated Date: 04/13/2024 09:58 ET Assigned Physician: Dhruv Moreno Reviewed and Electronically Signed By: Dhruv Moreno Signed Date: 04/13/2024 11:52 ET Workstation ID: [id number] Transcribed By: Self Edit Transcribed Date: 04/13/2024 [...] is recommended in 1 year. Mammo Location: [facility], [address] [place] [address], [id number], . -------- FINAL REPORT -------- Dictated By: Dhruv Moreno Dictated Date: 04/13/2024 09:58 ET Assigned Physician: Dhruv Moreno Reviewed and Electronically Signed By: Dhruv Moreno Signed Date: 04/13/2024 11:52 ET Workstation ID: [id number] Transcribed By: Self Edit Transcribed Date: 04/13/2024 10:15 ET Connie Coley [facility] BI PROCEDURES Final Result from Last 3 Months or Most Recently Relevant to Health Maintenance Insurance [facility] Care Teams Bottle Hop Relationship Specialty Start Date End Date Connie Coley [address] [place] [address] PCP - General Family Medicine 02/14/24
== END 2024-12-28 15:46 | disposition home or self-care (01) ==
LOC: HO.HMGAL 15:46
PROVIDERS: PCP Registered Nurse; Visit Provider Registered Nurse Emergency
DX: J30.89 Other allergic rhinitis (principal)
CPT/HCPCS: 95117; 95165